=== PATIENT | male | born 1995 | race Hispanic/Latino ===

== ENCOUNTER 2016-04-06 18:48 | Emergency (ER) | payer SELFPAY ==
[~2016-04-06] VITALS: Ht 177.8 cm; Wt 99.0 kg
[~2016-04-06 18:48] MED LIST: NOHOMEMEDS
[2016-04-06 19:05] LABS: MCH 29.6 PG (29.0-34.0); MCHC 34.8 G/DL (30.0-36.0); MEAN PLAT.VOLUME 8.8 uM^3 (9.0-12.4); PLATELET COUNT 306 K/uL (156-360); RBC DIS.WIDTH-CV 13.1 % (11.8-14.6); RBC DIS.WIDTH-SD 40.7 % (39-53); RED BLOOD COUNT 4.94 M/uL (4.00-5.50); WHITE BLOOD COUNT 8.5 K/uL (4.1-10.2)
[2016-04-06 19:14] LABS: CHLORIDE 104 mEq/L (99-109); SODIUM 140 mEq/L (136-147)
[2016-04-06 19:16] LABS: GLUCOSE 91 mg/dL (70-99)
[2016-04-06 19:17] LABS: ANION GAP 8 MEQ/L (2-14)
[2016-04-06 19:18] LABS: TOTAL BILIRUBIN 0.4 mg/dL (0.0-1.0)
[2016-04-06 19:20] LABS: ALKALINE PHOSPHATASE 63 IU/L (3-129); GFR ESTIMATE (CALCULATED) > 59 mL/min/
[2016-04-06 19:21] LABS: UREA NITROGEN (BUN) 15 mg/dL (9-23)
[2016-04-06] MEDS ORDERED: OMEPRAZOLE40 M1 PO (20:06)
[2016-04-06 20:31] VITALS: BP 140/91
== END 2016-04-06 20:32 | disposition home or self-care (01) ==
LOC: EME 18:48
DX: K92.0 Hematemesis (principal)
CPT/HCPCS: 74022; 80053; 81003; 85027; 99281; 99284